=== PATIENT | female | born 1975 | race Hispanic/Latino ===

== ENCOUNTER 2022-05-26 11:09 | Observation (INO) | payer BC, OTHER ==
[~2022-05-26] VITALS: Ht 149.9 cm; Wt 115.2 kg
[2022-05-26 13:09] LABS: HEMATOCRIT 17.4 % (36-48)
[2022-05-26] MEDS ORDERED: FERR159T3 PO (13:40)
[2022-05-26 16:05] VITALS: BP 139/80
[2022-05-26 16:38] VITALS: BP 194/87
[2022-05-26 19:15] VITALS: BP 163/95
[2022-05-26 21:44] LABS: HEMATOCRIT 23.2 % (36-48)
[2022-05-26 22:30] VITALS: BP 147/77
[2022-05-26] MEDS ORDERED: ACETAMINOPHEN WITH CODEINE 1 TAB TAB PO PRN (23:00)
[2022-05-26] MEDS ORDERED: ACETAMINOPHEN WITH CODEINE 1 TAB TAB ONE (23:06)
== END 2022-05-27 01:35 | disposition home or self-care (01) ==
LOC: EDH 11:09 → EDHIP 12:09 → WSH 13:00
PROVIDERS: ADMIT Obstetrics & Gynecology; ATTEND Obstetrics & Gynecology
DX: D64.9 Anemia, unspecified (principal)
CPT/HCPCS: 36430; 85014 ×2; 85018 ×2; 86850; 86900; 86901; 86923 ×2; 36415; 76856; G0378 ×7; G0379; P9016 ×3

== ENCOUNTER 2022-06-08 05:30 | Observation (INO) | payer BC ==
[2022-06-04 17:33] VITALS: BP 159/68
[2022-06-04 17:41] LABS: BASOPHILS % (AUTO) 0.3 % (0.0-5.0); EOSINOPHILS % (AUTO) 1.9 % (0.0-8.0); HEMATOCRIT 33.1 % (36-48); LYMPHOCYTES % (AUTO) 19.5 % (21.0-51.0); MEAN CORPUSCULAR HEMOGLOBIN 27.6 pg (27.0-33.0); MEAN CORPUSCULAR HGB CONC 30.8 g/dL (32.0-36.0); MEAN CORPUSCULAR VOLUME 89.7 fL (79-99); MONOCYTES % (AUTO) 5.4 % (3.0-13.0); NEUTROPHILS % (AUTO) 72.6 % (40.0-77.0); PLATELET COUNT (AUTO) 252 K/uL (130-400); RED BLOOD CELL COUNT(AUTO) 3.69 MIL/uL (4.00-5.50); WHITE BLOOD COUNT (AUTO) 7.4 K/uL (4.8-10.8)
[2022-06-08] VITALS (23 sets, daily range): BP systolic 127–181; BP diastolic 44–96
[~2022-06-08] VITALS: Ht 149.9 cm; Wt 111.3 kg
[~2022-06-08 05:30] MED LIST: FERR-82 PO
[2022-06-08] MEDS ORDERED: LACTATED RINGERS 1000ML 1,000 ML IV ONE (06:39)
[2022-06-08 06:54] LABS: APPEARANCE,URINE CLEAR (CLEAR); BILIRUBIN,URINE NEGATIVE (NEGATIVE); COLOR,URINE YELLOW (YELLOW); GLUCOSE, URINE (UA) NEGATIVE (NEGATIVE); KETONES,URINE NEGATIVE (NEGATIVE); LEUKOCYTE ESTERASE ,URINE NEGATIVE (NEGATIVE); NITRATE,URINE NEGATIVE (NEGATIVE); OCCULT BLOOD,URINE MODERATE (NEGATIVE); PROTEIN,URINE NEGATIVE (NEGATIVE); UROBILINOGEN,URINE 0.2 mg/dL (0.2-1.0)
[2022-06-08] MEDS ORDERED: PROPOFOL 10 MG/ML 20ML VIAL IV ONE (06:59)
[2022-06-08] MEDS ORDERED: MIDAZOLAM HCL 1 MG/ML 2ML VIAL ONE (06:59)
[2022-06-08] MEDS ORDERED: DEXAMETHASONE SOD PHOSPHATE 10MG/ML 1ML VIAL ONE (07:00)
[2022-06-08] MEDS ORDERED: FENTANYL CITRATE PF 50 MCG/1 ML 2ML VIAL ONE (07:00)
[2022-06-08] MEDS ORDERED: ROCURONIUM 10MG/1ML SYR 10 MG/ML ML ONE ×2 (07:01→08:51)
[2022-06-08] MEDS ORDERED: ONDANSETRON 4MG INJ ONE ×2 (07:01→10:05)
[2022-06-08] MEDS ORDERED: LIDOCAINE PF 100MG/5ML (2%) SYRINGE 5ML ONE (07:02)
[2022-06-08] MEDS ORDERED: NEOSTIGMINE 5MG/5ML SYR IV ONE (07:03)
[2022-06-08] MEDS ORDERED: GLYCOPYRROLATE 1 MG/5 ML SYRINGE ONE ×2 (07:03→10:08)
[2022-06-08 07:17] LABS: BACTERIA,URINE Rare /HPF (None Seen); RBC,URINE 0-1 /HPF (0-1); SQUAMOUS EPITHELIAL CELL,UR Few /HPF (0-2); WBC,URINE 0-1 /HPF (0-1)
[2022-06-08] MEDS: CEFAZOLIN SODIUM 1 GM VIAL ONE ×2 (07:23→07:51)
[2022-06-08] MEDS ORDERED: PHENYLEPHRINE HCL 10 MG/ML 1ML VIAL IV ONE (07:32)
[2022-06-08] MEDS ORDERED: SUCCINYLCHOLINE CHLORIDE 20 MG/ML 10 ML VIAL ONE (07:52)
[2022-06-08] MEDS ORDERED: MEPERIDINE-PF 25 MG/ML SYG ONE ×2 (10:05→10:26)
[2022-06-08] MEDS ORDERED: HYDRALAZINE 20MG/ML VIAL ONE (10:25)
[2022-06-08] MEDS: PROMETHAZINE HCL 25 MG/ML 1ML AMPULE IM PRN ×2 (11:22→19:01)
[2022-06-08] MEDS: MEPERIDINE-PF 75 MG/ML SYG IM PRN ×2 (11:22→19:01)
[2022-06-08] MEDS: DEXTROSE 5 %-0.45 % NACL 1,000 ML IV PRN ×2 (11:24→18:24)
[2022-06-08] MEDS ORDERED: BISACODYL 10 MG SUPP.RECT RC PRN (11:30)
[2022-06-08] MEDS ORDERED: PROMETHAZINE HCL 25 MG/ML 1ML AMPULE IM PRN (11:30)
[2022-06-08] MEDS ORDERED: ACETAMINOPHEN WITH CODEINE 1 TAB TAB PO PRN (11:30)
[2022-06-08] MEDS ORDERED: ONDANSETRON 4MG INJ IVP PRN (11:30)
[2022-06-08] MEDS ORDERED: IBUPROFEN 600 MG TABLET PO PRN (11:30)
[2022-06-08] MEDS ORDERED: SIMETHICONE 80 MG TAB.CHEW PO PRN (11:30)
[2022-06-08] MEDS ORDERED: DOCUSATE SODIUM 100 MG CAP PO PRN (11:30)
[2022-06-09] MEDS: DEXTROSE 5 %-0.45 % NACL 1,000 ML IV PRN (02:22)
[2022-06-09 02:40] VITALS: BP 144/67
[2022-06-09 05:43] LABS: HEMATOCRIT 30.3 % (36-48); MEAN CORPUSCULAR HEMOGLOBIN 28.3 pg (27.0-33.0); MEAN CORPUSCULAR HGB CONC 31.4 g/dL (32.0-36.0); MEAN CORPUSCULAR VOLUME 90.2 fL (79-99); RED BLOOD CELL COUNT(AUTO) 3.36 MIL/uL (4.00-5.50); RED CELL DISTRIBUTION WIDTH 23.4 % (11.0-15.5); WHITE BLOOD COUNT (AUTO) 11.1 K/uL (4.8-10.8)
[2022-06-09] MEDS ORDERED: ACETAMINOPHEN WITH CODEINE 1 TAB TAB PO PRN (07:30)
[2022-06-09] MEDS ORDERED: HYDROCODONE/ACETAMINOPHEN 5/325 MG TAB PO PRN (07:30)
[2022-06-09] MEDS ORDERED: IBUPROFEN 800 MG TAB PO PRN (07:30)
[2022-06-09 07:41] VITALS: BP 151/71
[2022-06-09 11:46] VITALS: BP 162/89
== END 2022-06-09 14:15 | disposition home or self-care (01) ==
LOC: DAH 05:30 → DAHIP 05:31 → WSH 05:32
PROVIDERS: ADMIT Obstetrics & Gynecology; ATTEND Obstetrics & Gynecology
DX: N92.1 Excessive and frequent menstruation with irregular cycle (principal); Z20.822 Contact with and (suspected) exposure to COVID-19; N85.2 Hypertrophy of uterus; D50.0 Iron deficiency anemia secondary to blood loss (chronic); N83.202 Unspecified ovarian cyst, left side; K46.9 Unspecified abdominal hernia without obstruction or gangrene; E66.01 Morbid (severe) obesity due to excess calories; J45.909 Unspecified asthma, uncomplicated; Z98.51 Tubal ligation status; Z79.899 Other long term (current) drug therapy; Z98.890 Other specified postprocedural states; Z68.42 Body mass index [BMI] 45.0-49.9, adult
CPT/HCPCS: 85025; 86850 ×2; 86900 ×2; 86901 ×2; 87426; 36415 ×3; 58292; 96372; 81001; 85027; A6260; G0378 ×29; G0379; J7120 ×2; A4351; A4606; J3010; J0690; J3490 ×2; J1100; J2710; J0330; J2550 ×2; J2001; J0360; J2250; J2704; J2405 ×2; J2175 ×4; J2370; A4215; A4223; A4222; A4221; A4600; A4510